=== PATIENT | male | born 1980 | race Caucasian/White ===

== ENCOUNTER 2018-07-08 17:53 | Emergency (ER) | payer OTHER ==
[2018-07-08 18:17] VITALS: BMI 25.0
--- NOTE | 2018-07-08 19:12 | C.PDOC ---
History Of Present Illness 38 year old male with abdominal colic since yesterday. Denies fever. Patient admits to constipation, eats constipating [place] diet. Has not tried laxative. Time Seen by Provider: 07/08/18 19:05 Chief Complaint (Nursing): Abdominal Pain History Per: Patient History/Exam Limitations: no limitations Onset/Duration Of Symptoms: Other (Yesterday) Current Symptoms Are (Timing): Still Present Quality Of Discomfort: Unable To Describe Associated Symptoms: Constipation. denies: Fever Exacerbating Factors: None Alleviating Factors: None Recent travel outside of the [place]: No Past Medical History Reviewed: Historical Data, Nursing Documentation, Vital Signs Vital Signs: Last Vital Signs Temp 98.3 F 07/08/18 18:02 Pulse 62 07/08/18 18:02 Resp 18 07/08/18 18:02 BP 117/79 07/08/18 18:02 Pulse Ox 98 07/08/18 18:02 Family History: States: Unknown Family Hx - Social History Hx Tobacco Use: No Hx Alcohol Use: No Hx Substance Use: No - Immunization History Hx Tetanus Toxoid Vaccination: No Hx Influenza Vaccination: No Hx Pneumococcal Vaccination: No Review Of Systems Constitutional: Negative for: Fever, Chills Cardiovascular: Negative for: Chest Pain, Palpitations Respiratory: Negative for: Cough, Shortness of Breath Gastrointestinal: Positive for: Abdominal Pain, Constipation. Negative for: Nausea, Vomiting Neurological: Negative for: Weakness, Numbness Physical Exam - Physical Exam Appears: Non-toxic, Other (Tall thin male) Skin: Normal Color, Warm, Dry Head: Atraumatic, Normacephalic Oral Mucosa: Moist Chest: Symmetrical, No Tenderness Cardiovascular: Rhythm Regular Respiratory: Normal Breath Sounds, No Rales, No Rhonchi, No Wheezing Gastrointestinal/Abdominal: Soft, No Tenderness, Other (Tympanic at epigastrium dull at LLQ, negative go's and mcburney's) Neurological/Psych: Oriented x3, Normal Speech ED Course And Treatment O2 Sat by Pulse Oximetry: 98 (Room air) Pulse Ox Interpretation: Normal Medical Decision Making Medical Decision Making: prob constipation constipating diet prefers option to trial laxative overnight and return in AM PRN Defers w/u w informed consent. Disposition Doctor Will See Patient In The: Office Counseled Patient/Family Regarding: Studies Performed, Diagnosis - Disposition Referrals: Lobo Caban [Staff Provider] - Disposition: HOME/ ROUTINE Disposition Time: 19:12 Condition: GOOD Additional Instructions: patricio el purgante ahora re-evalua daniel molestia del abdomen despues de usar el ivana 2-3 veces Regressa en la manana cordelia necessario Cambios de dieta/ejercisio cordelia educado Instructions: Constipation, Adult (DC), Gas and Bloating (ED) Forms: EVRYTHNG (Citizen Of [place]) Print Language: [id number] - Clinical Impression Clinical Impression: Abdominal colic - Scribe Statement The provider has reviewed the documentation as recorded by the Scribe Edvin Romero All medical record entries made by the Scribe were at my direction and personally dictated by me. I have reviewed the chart and agree that the record accurately reflects my personal performance of the history, physical exam, medical decision making, and the department course for this patient. I have also personally directed, reviewed, and agree with the discharge instructions and disposition.
[2018-07-08] MEDS ORDERED: Magnesium Citrate Oral SOL (300 ml) PO ONE (19:15)
[2018-07-08 19:24] VITALS: BP 109/72; PULSE 71; RESP 16; TEMP 98.9; O2SAT 99
[2018-07-08] MEDS ORDERED: Magnesium Citrate Oral SOL (300 ml) ONE (19:26)
== END 2018-07-08 19:25 | disposition home or self-care (01) ==
LOC: C.ER 17:53
DX: R10.84 Generalized abdominal pain (principal)